=== PATIENT | male | born 1960 | race Caucasian/White ===

== ENCOUNTER 2022-04-19 10:09 | Inpatient (IN) | payer OTHER ==
[2022-04-19 11:24] VITALS: BMI 18.4
[2022-04-19] MEDS ORDERED: NICOTINE 10 MG CARTRIDGE (INHALER) IH PRN (14:12)
[2022-04-19] MEDS ORDERED: LOPERAMIDE HCL 2 MG CAPSULE PO PRN (14:12)
[2022-04-19] MEDS ORDERED: MAGNESIUM HYDROX 2400MG/30ML ORAL SUSPENSION 30 ML CUP PO PRN (14:12)
[2022-04-19] MEDS ORDERED: IBUPROFEN 400 MG TABLET (FP) PO PRN (14:12)
[2022-04-19] MEDS ORDERED: POLYETHYLENE GLYCOL (HEALTHYLAX) 3350 17 GM PACKET PO PRN (14:12)
[2022-04-19] MEDS ORDERED: BISMUTH SUBSALICYLATE 524 MG/30 ML PO PRN (14:12)
[2022-04-19] MEDS ORDERED: IBUPROFEN 600 MG TABLET (FP) PO PRN (14:12)
[2022-04-19] MEDS ORDERED: MAG HYDROX/AL HYDROX/SIMETH 30 ML UNIT-DOSE CUP PO PRN (14:12)
[2022-04-19] MEDS ORDERED: DICYCLOMINE HCL 10 MG CAPSULE PO PRN (14:12)
[2022-04-19] MEDS ORDERED: ACETAMINOPHEN 325 MG TABLET (FP) PO PRN ×2 (14:12)
[2022-04-19] MEDS ORDERED: chlordiazePOXIDE HCL 25 MG CAPSULE PO PRN (14:12)
[2022-04-19] MEDS ORDERED: ONDANSETRON *ODT* 4 MG TABLET SL PRN (14:12)
[2022-04-19] MEDS ORDERED: BENZOCAINE/MENTHOL (CHLORASEPTIC ) LOZENGE MM PRN (14:12)
[2022-04-19] MEDS ORDERED: NALOXONE HCL (KLOXXADO) 8 MG SPRAY NS PRN (14:12)
[2022-04-19] MEDS ORDERED: hydrOXYzine PAMOATE 25 MG CAPSULE (FP) PO PRN (14:12)
[2022-04-19] MEDS ORDERED: methaDONE HCL 10 MG TABLET (FOR DETOX USE ONLY) PO ONE (14:45)
[2022-04-19] MEDS: NICOTINE 7 MG/24 HOURS TOPICAL PATCH TD SCH (15:02)
[2022-04-19] MEDS: chlordiazePOXIDE HCL 25 MG CAPSULE PO SCH ×2 (17:53→22:09)
[2022-04-19] MEDS: MELATONIN 5 MG TABLETS PO SCH (22:09)
[2022-04-19] MEDS: THIAMINE HCL 100 MG TABLET (FP) PO SCH (22:09)
[2022-04-20] MEDS: chlordiazePOXIDE HCL 25 MG CAPSULE PO SCH ×4 (05:25→22:29)
[2022-04-20] MEDS: PRENATAL VITAMINS W/ FOLIC ACID TABLET (FP) PO SCH (10:21)
[2022-04-20] MEDS: METHOCARBAMOL 500 MG TABLET PO PRN ×2 (10:25→18:45)
[2022-04-20] MEDS: NICOTINE 7 MG/24 HOURS TOPICAL PATCH TD SCH (10:43)
[2022-04-20 11:35] LABS: HEMATOCRIT 39.4 % (35.4-49); MCH 30.8 pg (25.7-33.7); MEAN CELL VOLUME 93.4 fl (80-96); MEAN PLT VOLUME 9.8 fl (7.5-11.1); PLATELET COUNT 212 10^3/uL (134-434); RBC 4.22 M/mm3 (4.00-5.60); RDW 13.3 % (11.9-15.9); WHITE BLOOD COUNT 4.9 K/mm3 (4.0-10.0)
[2022-04-20 12:17] LABS: BLOOD UREA NITROGEN 23.4 mg/dL (7-18); CALCIUM 8.5 mg/dL (8.5-10.1)
[2022-04-20 12:18] LABS: ALBUMIN 3.3 g/dl (3.4-5.0)
[2022-04-20 12:21] LABS: CREATININE 1.1 mg/dL (0.55-1.3)
[2022-04-20 12:22] LABS: BILIRUBIN,TOTAL 0.5 mg/dL (0.2-1); TOT PROT 6.5 g/dl (6.4-8.2)
[2022-04-20 21:20] VITALS: RESP 16
[2022-04-20] MEDS: MELATONIN 5 MG TABLETS PO SCH (22:29)
[2022-04-20] MEDS: THIAMINE HCL 100 MG TABLET (FP) PO SCH (22:29)
[2022-04-21] MEDS: chlordiazePOXIDE HCL 25 MG CAPSULE PO SCH ×3 (06:05→17:49)
[2022-04-21] MEDS ORDERED: methaDONE HCL 10 MG TABLET (FOR DETOX USE ONLY) PO ONE (10:00)
[2022-04-21] MEDS: NICOTINE 7 MG/24 HOURS TOPICAL PATCH TD SCH (10:14)
[2022-04-21] MEDS: PRENATAL VITAMINS W/ FOLIC ACID TABLET (FP) PO SCH (10:16)
[2022-04-21] MEDS: METHOCARBAMOL 500 MG TABLET PO PRN (10:16)
[2022-04-21 17:01] VITALS: BP 137/75; PULSE 70; TEMP 97.6
[2022-04-22] MEDS ORDERED: chlordiazePOXIDE HCL 10 MG CAPSULE PO PRN
[2022-04-22] MEDS ORDERED: chlordiazePOXIDE HCL 10 MG CAPSULE PO SCH (05:00)
[2022-04-23] MEDS ORDERED: chlordiazePOXIDE HCL 10 MG CAPSULE PO SCH (05:00)
[2022-04-23] MEDS ORDERED: methaDONE HCL 10 MG TABLET (FOR DETOX USE ONLY) PO ONE (10:00)
[2022-04-24] MEDS ORDERED: chlordiazePOXIDE HCL 10 MG CAPSULE PO ONE (05:00)
== END 2022-04-21 20:06 | disposition left against medical advice (07) | DRG 770 ==
LOC: YASAS 10:09 → Y3N 13:59
PROVIDERS: ADMIT Allergy & Immunology; ATTEND Surgery
PROC: HZ2ZZZZ Detoxification Services for Substance Abuse Treatment (ICD-10-PCS; principal; 2022-04-19)
DX: F10.230 Alcohol dependence with withdrawal, uncomplicated (principal); F11.23 Opioid dependence with withdrawal; F14.10 Cocaine abuse, uncomplicated; F12.20 Cannabis dependence, uncomplicated; F17.210 Nicotine dependence, cigarettes, uncomplicated
CPT/HCPCS: 36415; 80053; 84520; 85027; 86780; 87811; C9803-CS; U0003; U0005

== ENCOUNTER 2022-05-18 11:57 | Inpatient (IN) | payer OTHER ==
[2022-05-18 12:18] VITALS: BMI 17.7
[2022-05-18] MEDS ORDERED: NALOXONE HCL (KLOXXADO) 8 MG SPRAY NS PRN (13:17)
[2022-05-18] MEDS ORDERED: BISMUTH SUBSALICYLATE 262 MG/15 ML BTL PO PRN (13:17)
[2022-05-18] MEDS ORDERED: MAGNESIUM HYDROX 2400MG/30ML ORAL SUSPENSION 30 ML CUP PO PRN (13:17)
[2022-05-18] MEDS ORDERED: IBUPROFEN 400 MG TABLET (FP) PO PRN (13:17)
[2022-05-18] MEDS ORDERED: LOPERAMIDE HCL 2 MG CAPSULE PO PRN (13:17)
[2022-05-18] MEDS ORDERED: IBUPROFEN 600 MG TABLET (FP) PO PRN (13:17)
[2022-05-18] MEDS ORDERED: BENZONATATE 200 MG CAPSULE PO PRN (13:17)
[2022-05-18] MEDS ORDERED: BENZOCAINE/MENTHOL (CHLORASEPTIC ) LOZENGE MM PRN (13:17)
[2022-05-18] MEDS ORDERED: NALOXONE HCL 0.4 MG/ML VIAL IM PRN (13:17)
[2022-05-18] MEDS ORDERED: POLYETHYLENE GLYCOL (HEALTHYLAX) 3350 17 GM PACKET PO PRN (13:17)
[2022-05-18] MEDS ORDERED: hydrOXYzine PAMOATE 25 MG CAPSULE (FP) PO PRN (13:17)
[2022-05-18] MEDS ORDERED: ACETAMINOPHEN 325 MG TABLET (FP) PO PRN (13:17)
[2022-05-18] MEDS ORDERED: NICOTINE 10 MG CARTRIDGE (INHALER) IH PRN (13:17)
[2022-05-18] MEDS ORDERED: guaiFENesin 600 MG TABLET.ER (FP) PO PRN (13:17)
[2022-05-18] MEDS ORDERED: diazePAM 5 MG TABLET PO ONE (13:17)
[2022-05-18] MEDS ORDERED: METHOCARBAMOL 500 MG TABLET PO PRN (13:17)
[2022-05-18] MEDS ORDERED: MAG HYDROX/AL HYDROX/SIMETH 30 ML UNIT-DOSE CUP PO PRN (13:17)
[2022-05-18] MEDS ORDERED: PRENATAL VITAMINS W/ FOLIC ACID TABLET (FP) PO ONE (14:12)
[2022-05-18] MEDS ORDERED: diazePAM 5 MG TABLET ONE (14:12)
[2022-05-18] MEDS ORDERED: NICOTINE 14 MG/24 HOURS TOPICAL PATCH TD ONE (14:12)
[2022-05-18] MEDS: PRENATAL VITAMINS W/ FOLIC ACID TABLET (FP) PO SCH (14:22)
[2022-05-18] MEDS: NICOTINE 14 MG/24 HOURS TOPICAL PATCH TD SCH (14:22)
[2022-05-18] MEDS: diazePAM 5 MG TABLET PO SCH (18:07)
[2022-05-18] MEDS: ONDANSETRON *ODT* 4 MG TABLET SL PRN (18:51)
[2022-05-18 18:57] LABS: HEMATOCRIT 34.4 % (35.4-49); HEMOGLOBIN 11.3 GM/dL (11.7-16.9); MCH 29.9 pg (25.7-33.7); MCHC 32.7 g/dl (32.0-35.9); MEAN CELL VOLUME 91.4 fl (80-96); MEAN PLT VOLUME 8.6 fl (7.5-11.1); PLATELET COUNT 292 10^3/uL (134-434); RBC 3.77 M/mm3 (4.00-5.60); RDW 13.9 % (11.9-15.9); WHITE BLOOD COUNT 4.3 K/mm3 (4.0-10.0)
[2022-05-18 19:04] LABS: BLOOD UREA NITROGEN 20.6 mg/dL (7-18)
[2022-05-18 19:09] LABS: BILIRUBIN,TOTAL 0.1 mg/dL (0.2-1)
[2022-05-18 19:10] LABS: TOT PROT 6.3 g/dl (6.4-8.2)
[2022-05-18] MEDS: DICYCLOMINE HCL 10 MG CAPSULE PO PRN (20:54)
[2022-05-18] MEDS ORDERED: TRIMETHOBENZAMIDE HCL 200MG/2ML INJ IM ONE (23:06)
[2022-05-19] MEDS: THIAMINE HCL 100 MG TABLET (FP) PO SCH ×2 (00:09→22:23)
[2022-05-19] MEDS: MELATONIN 5 MG TABLETS PO SCH ×2 (00:09→22:24)
[2022-05-19] MEDS: diazePAM 5 MG TABLET PO SCH ×5 (00:09→22:23)
[2022-05-19] MEDS: diazePAM 5 MG TABLET PO PRN ×2 (00:11→18:53)
[2022-05-19] MEDS: PRENATAL VITAMINS W/ FOLIC ACID TABLET (FP) PO SCH (10:22)
[2022-05-19] MEDS: NICOTINE 14 MG/24 HOURS TOPICAL PATCH TD SCH (10:22)
[2022-05-20] MEDS: diazePAM 5 MG TABLET PO SCH ×3 (05:07→21:45)
[2022-05-20] MEDS: NICOTINE 14 MG/24 HOURS TOPICAL PATCH TD SCH (10:13)
[2022-05-20] MEDS: PRENATAL VITAMINS W/ FOLIC ACID TABLET (FP) PO SCH (10:14)
[2022-05-20] MEDS: diazePAM 5 MG TABLET PO PRN (10:15)
[2022-05-20] MEDS: ONDANSETRON *ODT* 4 MG TABLET SL PRN (11:03)
[2022-05-20] MEDS ORDERED: amLODIPine BESYLATE 5 MG TABLET (FP) PO SCH (11:45)
[2022-05-20] MEDS ORDERED: TRIMETHOBENZAMIDE HCL 200MG/2ML INJ IM PRN (11:54)
[2022-05-20] MEDS ORDERED: MAG HYDROX/AL HYDROX/SIMETH -MYLANTA- ORAL SUSPENSION PO ONE (11:57)
[2022-05-20] MEDS: DICYCLOMINE HCL 10 MG CAPSULE PO PRN (14:49)
[2022-05-20 17:48] VITALS: TEMP 97.3
[2022-05-20 21:22] VITALS: BP 158/88; PULSE 87; RESP 18
[2022-05-20] MEDS: THIAMINE HCL 100 MG TABLET (FP) PO SCH (21:45)
[2022-05-20] MEDS: MELATONIN 5 MG TABLETS PO SCH (21:45)
[2022-05-21] MEDS ORDERED: diazePAM 5 MG TABLET PO SCH (06:00)
[2022-05-22] MEDS ORDERED: diazePAM 5 MG TABLET PO ONE (06:00)
== END 2022-05-20 21:45 | disposition left against medical advice (07) | DRG 770 ==
LOC: YASAS 11:57 → Y6N 13:42
PROVIDERS: ADMIT Allergy & Immunology; ATTEND Surgery
PROC: HZ2ZZZZ Detoxification Services for Substance Abuse Treatment (ICD-10-PCS; principal; 2022-05-18)
DX: F10.230 Alcohol dependence with withdrawal, uncomplicated (principal); F11.20 Opioid dependence, uncomplicated; F14.10 Cocaine abuse, uncomplicated; F12.10 Cannabis abuse, uncomplicated; F17.210 Nicotine dependence, cigarettes, uncomplicated; I10 Essential (primary) hypertension; R11.2 Nausea with vomiting, unspecified; R19.7 Diarrhea, unspecified; R10.9 Unspecified abdominal pain
CPT/HCPCS: 36415; 80053; 85027; 86780; C9803-CS; Q0162; U0003; U0005

== ENCOUNTER 2022-05-20 18:09 | Emergency (ER) | payer OTHER ==
[2022-05-20 18:19] VITALS: BP 155/88; PULSE 81; RESP 20; TEMP 98; BMI 17.7
[2022-05-20] MEDS ORDERED: ONDANSETRON 4 MG/2 ML VIAL IVPUSH ONE (19:56)
[2022-05-20] MEDS ORDERED: SODIUM CHLORIDE 0.9% 500 ML INFUS.BAG IV ONE (19:56)
[2022-05-20] MEDS ORDERED: ACETAMINOPHEN 1000 MG/100 ML BAG IVPB ONE (19:56)
[2022-05-20] MEDS ORDERED: FAMOTIDINE 20 MG/50 ML IVPB 20 MG/50 ML MG IVPB ONE (19:56)
[2022-05-20 20:11] LABS: BASO % 0.5 % (0-2.0); HEMATOCRIT 41.2 % (35.4-49); HEMOGLOBIN 13.7 GM/dL (11.7-16.9); LYMPH % 21.3 % (8-40); MCH 30.3 pg (25.7-33.7); MCHC 33.4 g/dl (32.0-35.9); MEAN CELL VOLUME 90.6 fl (80-96); MEAN PLT VOLUME 8.5 fl (7.5-11.1); MONO % 8.2 % (3.8-10.2); PLATELET COUNT 321 10^3/uL (134-434); RBC 4.54 M/mm3 (4.00-5.60); WHITE BLOOD COUNT 5.3 K/mm3 (4.0-10.0)
[2022-05-20 20:12] LABS: PH,URINE 8.5 (5.0-8.0); URINE APPEARANCE CLEAR; URINE BILIRUBIN NEGATIVE (NEGATIVE); URINE COLOR YELLOW; URINE GLUCOSE (UA) NEGATIVE (NEGATIVE); URINE KETONE NEGATIVE (NEGATIVE); URINE LEUK ESTERASE NEGATIVE (NEGATIVE); URINE NITRITE NEGATIVE (NEGATIVE); URINE PROTEIN NEGATIVE (NEGATIVE); URINE UROBILINOGEN 0.2 mg/dL (0.2-1.0)
[2022-05-20 20:32] LABS: CALCIUM 8.6 mg/dL (8.5-10.1)
[2022-05-20 20:33] LABS: ALBUMIN 3.3 g/dl (3.4-5.0); BLOOD UREA NITROGEN 17.8 mg/dL (7-18)
[2022-05-20 20:36] LABS: CREATININE 0.8 mg/dL (0.55-1.3)
[2022-05-20 20:37] LABS: TOT PROT 7.2 g/dl (6.4-8.2)
[2022-05-20 20:38] LABS: BILIRUBIN,TOTAL 0.3 mg/dL (0.2-1)
== END 2022-05-20 23:09 | disposition left against medical advice (07) ==
LOC: JER 18:09
DX: R10.84 Generalized abdominal pain (principal); R11.2 Nausea with vomiting, unspecified; Z20.822 Contact with and (suspected) exposure to COVID-19
CPT/HCPCS: 0241U-QW; 36415; 71045-TC-FY; 80053; 81003; 83605; 83690; 84484; 85025; 87086; 87186; 93005; 93010; 99285-25

== ENCOUNTER 2023-07-01 13:46 | Inpatient (IN) | payer OTHER ==
[2023-07-01 14:20] VITALS: BMI 19.2
[2023-07-01] MEDS ORDERED: MAG HYDROX/AL HYDROX/SIMETH 30 ML UNIT-DOSE CUP PO PRN (16:07)
[2023-07-01] MEDS ORDERED: POLYETHYLENE GLYCOL (HEALTHYLAX) 3350 17 GM PACKET PO PRN (16:07)
[2023-07-01] MEDS ORDERED: NALOXONE HCL 0.4 MG/ML VIAL IM PRN (16:07)
[2023-07-01] MEDS ORDERED: MAGNESIUM HYDROX 2400MG/30ML ORAL SUSPENSION 30 ML CUP PO PRN (16:07)
[2023-07-01] MEDS ORDERED: IBUPROFEN 600 MG TABLET (FP) PO PRN (16:07)
[2023-07-01] MEDS ORDERED: ACETAMINOPHEN 325 MG TABLET (FP) PO PRN (16:07)
[2023-07-01] MEDS ORDERED: NALOXONE HCL (KLOXXADO) 8 MG SPRAY NS PRN (16:07)
[2023-07-01] MEDS ORDERED: BENZONATATE 200 MG CAPSULE PO PRN (16:07)
[2023-07-01] MEDS ORDERED: BENZOCAINE/MENTHOL (CHLORASEPTIC ) LOZENGE MM PRN (16:07)
[2023-07-01] MEDS ORDERED: guaiFENesin 600 MG TABLET.ER (FP) PO PRN (16:07)
[2023-07-01] MEDS ORDERED: IBUPROFEN 400 MG TABLET (FP) PO PRN (16:07)
[2023-07-01] MEDS ORDERED: BISMUTH SUBSALICYLATE 524 MG/30 ML PO PRN (16:07)
[2023-07-01] MEDS ORDERED: LORazepam 1 MG TABLET PO PRN (16:07)
[2023-07-01] MEDS ORDERED: LORazepam 2 MG TABLET ONE (17:17)
[2023-07-01] MEDS: LORazepam 2 MG TABLET PO SCH (17:20)
[2023-07-01] MEDS: PRENATAL VITAMINS W/ FOLIC ACID TABLET (FP) PO SCH (17:51)
[2023-07-01] MEDS: NICOTINE 7 MG/24 HOURS TOPICAL PATCH TD SCH (17:52)
[2023-07-01] MEDS: ONDANSETRON *ODT* 4 MG TABLET SL PRN (20:14)
[2023-07-01] MEDS: TRIMETHOBENZAMIDE HCL 200MG/2ML INJ IM ONE (21:27)
[2023-07-01] MEDS: THIAMINE 100 MG TABLET PO SCH (23:01)
[2023-07-01] MEDS: MELATONIN 5 MG TABLETS PO SCH (23:01)
[2023-07-02] MEDS: DICYCLOMINE HCL 10 MG CAPSULE PO PRN (09:52)
[2023-07-02] MEDS: hydrOXYzine PAMOATE 25 MG CAPSULE (FP) PO PRN (09:52)
[2023-07-02] MEDS: METHOCARBAMOL 500 MG TABLET PO PRN (09:52)
[2023-07-02] MEDS ORDERED: TRIMETHOBENZAMIDE HCL 200MG/2ML INJ IM PRN (10:49)
[2023-07-02 11:42] LABS: CHLORIDE 104 mmol/L (98-107); POTASSIUM 4.2 mmol/L (3.5-5.1); SODIUM 134 mmol/L (136-145)
[2023-07-02 11:47] LABS: CALCIUM 8.7 mg/dL (8.5-10.1)
[2023-07-02 11:48] LABS: ALBUMIN 3.6 g/dl (3.4-5.0); ANION GAP 3 mmol/L (4-13); BLOOD UREA NITROGEN 17.5 mg/dL (7-18); CO2 27 mmol/L (21-32)
[2023-07-02 11:49] LABS: GLUCOSE,RANDOM 113 mg/dL (74-106)
[2023-07-02 11:51] LABS: SGOT/AST 36 U/L (15-37); SGPT/ALT 26 U/L (13-61)
[2023-07-02 11:52] LABS: CREATININE 0.9 mg/dL (0.55-1.3)
[2023-07-02 11:54] LABS: BILIRUBIN,TOTAL 0.5 mg/dL (0.2-1); TOT PROT 6.9 g/dl (6.4-8.2)
[2023-07-02 11:55] LABS: ALK PHOS 87 U/L (45-117)
[2023-07-02 12:02] LABS: HEMATOCRIT 42.4 % (35.4-49); HEMOGLOBIN 14.3 GM/dL (11.7-16.9); MCH 31.4 pg (25.7-33.7); MCHC 33.7 g/dl (32.0-35.9); MEAN CELL VOLUME 93.2 fl (80-96); MEAN PLT VOLUME 10.4 fl (7.5-11.1); PLATELET COUNT 188 10^3/uL (134-434); RBC 4.55 M/mm3 (4.00-5.60); RDW 14.3 % (11.9-15.9); WHITE BLOOD COUNT 5.6 K/mm3 (4.0-10.0)
[2023-07-02] MEDS: FAMOTIDINE 20 MG TABLET PO SCH (14:41)
[2023-07-02] MEDS: LACTULOSE 20 GM/30 ML UDC (FOR ORAL USE ONLY) PO SCH (22:39)
[2023-07-03] MEDS: LORazepam 1 MG TABLET PO SCH (05:13)
[2023-07-04] MEDS ORDERED: LORazepam 0.5 MG TABLET PO PRN
[2023-07-04] MEDS: LORazepam 0.5 MG TABLET PO SCH (05:42)
[2023-07-05] MEDS: LORazepam 0.5 MG TABLET PO ONE (05:39)
[2023-07-05 06:26] VITALS: RESP 17
[2023-07-05] MEDS: LOPERAMIDE HCL 2 MG CAPSULE PO PRN (08:49)
[2023-07-05 08:50] VITALS: BP 128/78; PULSE 72; TEMP 97.7
== END 2023-07-05 11:35 | disposition home or self-care (01) | DRG 775 ==
LOC: YASAS 13:46 → Y6N 16:57
PROVIDERS: ADMIT Allergy & Immunology; ATTEND Surgery
PROC: HZ2ZZZZ Detoxification Services for Substance Abuse Treatment (ICD-10-PCS; principal; 2023-07-01)
DX: F10.230 Alcohol dependence with withdrawal, uncomplicated (principal); F10.24 Alcohol dependence with alcohol-induced mood disorder; F10.282 Alcohol dependence with alcohol-induced sleep disorder; F12.20 Cannabis dependence, uncomplicated; F17.210 Nicotine dependence, cigarettes, uncomplicated; I10 Essential (primary) hypertension; E72.20 Disorder of urea cycle metabolism, unspecified; K21.9 Gastro-esophageal reflux disease without esophagitis; R26.81 Unsteadiness on feet; M19.90 Unspecified osteoarthritis, unspecified site; Z86.11 Personal history of tuberculosis; Z91.013 Allergy to seafood; Z56.0 Unemployment, unspecified; Z59.00 Homelessness unspecified
CPT/HCPCS: 36415; 71046-TC-FY; 80053; 80305; 80307; 82140; 82962; 85027; 86780; 87811; 93005; 93010; Q0162

== ENCOUNTER 2024-02-04 17:08 | Inpatient (IN) | payer OTHER ==
[2024-02-04 18:01] VITALS: BMI 18.0
[2024-02-04] MEDS ORDERED: chlordiazePOXIDE HCL 25 MG CAPSULE PO PRN (18:30)
[2024-02-04] MEDS ORDERED: IBUPROFEN 600 MG TABLET (FP) PO PRN (18:34)
[2024-02-04] MEDS ORDERED: BENZONATATE 200 MG CAPSULE PO PRN (18:34)
[2024-02-04] MEDS ORDERED: LOPERAMIDE HCL 2 MG CAPSULE PO PRN (18:34)
[2024-02-04] MEDS ORDERED: ACETAMINOPHEN 325 MG TABLET (FP) PO PRN (18:34)
[2024-02-04] MEDS ORDERED: BISMUTH SUBSALICYLATE 524 MG/30 ML PO PRN (18:34)
[2024-02-04] MEDS ORDERED: NICOTINE POLACRILEX 2 MG LOZENGE BC PRN (18:34)
[2024-02-04] MEDS ORDERED: ONDANSETRON *ODT* 4 MG TABLET SL PRN (18:34)
[2024-02-04] MEDS ORDERED: MAGNESIUM HYDROX 2400MG/30ML ORAL SUSPENSION 30 ML CUP PO PRN (18:34)
[2024-02-04] MEDS ORDERED: NICOTINE POLACRILEX 2 MG GUM BUC PRN (18:34)
[2024-02-04] MEDS ORDERED: guaiFENesin 600 MG TABLET.ER (FP) PO PRN (18:34)
[2024-02-04] MEDS ORDERED: POLYETHYLENE GLYCOL (HEALTHYLAX) 3350 17 GM PACKET PO PRN (18:34)
[2024-02-04] MEDS ORDERED: IBUPROFEN 400 MG TABLET (FP) PO PRN (18:34)
[2024-02-04] MEDS: chlordiazePOXIDE HCL 25 MG CAPSULE PO ONE (19:35)
[2024-02-04] MEDS: chlordiazePOXIDE HCL 25 MG CAPSULE PO SCH (23:14)
[2024-02-04] MEDS: THIAMINE 100 MG TABLET PO SCH (23:14)
[2024-02-04] MEDS: MELATONIN 5 MG TABLETS PO SCH (23:14)
[2024-02-04] MEDS ORDERED: LORazepam 2 MG/ML SDV VIAL ONE (23:30)
[2024-02-04] MEDS: levETIRAcetam 500 MG TABLET (FP) PO SCH (23:42)
[2024-02-04] MEDS: LORazepam 2 MG/ML SDV VIAL IM ONE (23:42)
[2024-02-05] MEDS: FAMOTIDINE 20 MG TABLET PO SCH (10:05)
[2024-02-05] MEDS: PRENATAL VITAMINS W/ FOLIC ACID TABLET (FP) PO SCH (10:06)
[2024-02-05] MEDS: DICYCLOMINE HCL 10 MG CAPSULE PO PRN (10:06)
[2024-02-05 11:26] LABS: POTASSIUM 3.9 mmol/L (3.5-5.1)
[2024-02-05 11:28] LABS: CALCIUM 9.1 mg/dL (8.5-10.1)
[2024-02-05 11:30] LABS: ALBUMIN 3.2 g/dl (3.4-5.0); BLOOD UREA NITROGEN 33.2 mg/dL (7-18)
[2024-02-05 11:31] LABS: HEMATOCRIT 41.2 % (35.4-49); HEMOGLOBIN 13.2 GM/dL (11.7-16.9); MCH 30.6 pg (25.7-33.7); MEAN CELL VOLUME 95.5 fl (80-96); MEAN PLT VOLUME 9.5 fl (7.5-11.1); PLATELET COUNT 221 10^3/uL (134-434); RBC 4.31 M/mm3 (4.00-5.60); WHITE BLOOD COUNT 4.5 K/mm3 (4.0-10.0)
[2024-02-05 11:32] LABS: CREATININE 1.1 mg/dL (0.55-1.3)
[2024-02-05 11:33] LABS: BILIRUBIN,TOTAL 0.2 mg/dL (0.2-1); TOT PROT 6.3 g/dl (6.4-8.2)
[2024-02-05] MEDS: diazePAM 5 MG TABLET PO SCH (11:59)
[2024-02-05 17:59] LABS: INR 0.84 (0.83-1.09); PROTHROMBIN TIME (PATIENT) 9.5 SEC (9.7-13.0)
[2024-02-06] MEDS ORDERED: chlordiazePOXIDE HCL 25 MG CAPSULE PO SCH (05:00)
[2024-02-06] MEDS: hydrOXYzine PAMOATE 25 MG CAPSULE (FP) PO PRN (18:20)
[2024-02-06] MEDS: BENZOCAINE/MENTHOL (CHLORASEPTIC ) LOZENGE MM PRN (21:28)
[2024-02-06] MEDS: P-EPHED 60MG/TRIPROLIDI 2.5MG TABLET PO PRN (22:21)
[2024-02-07] MEDS ORDERED: chlordiazePOXIDE HCL 10 MG CAPSULE PO PRN
[2024-02-07] MEDS: MAG HYDROX/AL HYDROX/SIMETH 30 ML UNIT-DOSE CUP PO PRN (01:31)
[2024-02-07] MEDS ORDERED: chlordiazePOXIDE HCL 10 MG CAPSULE PO SCH (05:00)
[2024-02-07] MEDS: diazePAM 5 MG TABLET PO SCH (05:37)
[2024-02-07] MEDS: METHOCARBAMOL 500 MG TABLET PO PRN (21:17)
[2024-02-08] MEDS ORDERED: chlordiazePOXIDE HCL 10 MG CAPSULE PO SCH (05:00)
[2024-02-08] MEDS: diazePAM 5 MG TABLET PO SCH (05:47)
[2024-02-08] MEDS: diazePAM 5 MG TABLET PO PRN (09:15)
[2024-02-08] MEDS: NALOXONE (NYS OPIOID OVERDOSE PROGRAM) 4 MG/0.1 ML SPRAY NS SCH (11:20)
[2024-02-08] MEDS: diazePAM 5 MG TABLET PO ONE (16:39)
[2024-02-09] MEDS ORDERED: chlordiazePOXIDE HCL 10 MG CAPSULE PO ONE (05:00)
[2024-02-09] MEDS: diazePAM 5 MG TABLET PO ONE (05:18)
[2024-02-09 09:08] VITALS: BP 159/87; PULSE 78; RESP 18; TEMP 98.4
== END 2024-02-09 10:38 | disposition home or self-care (01) | DRG 774 ==
LOC: YASAS 17:08 → Y6N 19:21 → Y3N 02-05 00:12
PROVIDERS: ADMIT Allergy & Immunology; ATTEND Surgery
PROC: HZ2ZZZZ Detoxification Services for Substance Abuse Treatment (ICD-10-PCS; principal; 2024-02-04)
DX: F10.230 Alcohol dependence with withdrawal, uncomplicated (principal); F14.20 Cocaine dependence, uncomplicated; F12.20 Cannabis dependence, uncomplicated; F17.210 Nicotine dependence, cigarettes, uncomplicated; F32.A Depression, unspecified; F41.9 Anxiety disorder, unspecified; I10 Essential (primary) hypertension; R79.89 Other specified abnormal findings of blood chemistry; R73.9 Hyperglycemia, unspecified; M19.90 Unspecified osteoarthritis, unspecified site; R26.81 Unsteadiness on feet; K21.9 Gastro-esophageal reflux disease without esophagitis; Z86.11 Personal history of tuberculosis; Z86.69 Personal history of other diseases of the nervous system and sense organs; Z91.013 Allergy to seafood
CPT/HCPCS: 36415; 80053; 82140; 83036; 85027; 85610; 86780

== ENCOUNTER 2024-02-24 14:04 | Inpatient (IN) | payer OTHER ==
[2024-02-24 14:30] VITALS: BMI 18.0
[2024-02-24] MEDS ORDERED: MAGNESIUM HYDROX 2400MG/30ML ORAL SUSPENSION 30 ML CUP PO PRN (15:59)
[2024-02-24] MEDS ORDERED: BENZONATATE 200 MG CAPSULE PO PRN (15:59)
[2024-02-24] MEDS ORDERED: NALOXONE (NARCAN) HCL 4 MG/0.1 ML SPRAY NS PRN (15:59)
[2024-02-24] MEDS ORDERED: guaiFENesin 600 MG TABLET.ER (FP) PO PRN (15:59)
[2024-02-24] MEDS ORDERED: MAG HYDROX/AL HYDROX/SIMETH 30 ML UNIT-DOSE CUP PO PRN (15:59)
[2024-02-24] MEDS ORDERED: ACETAMINOPHEN 325 MG TABLET (FP) PO PRN (15:59)
[2024-02-24] MEDS ORDERED: IBUPROFEN 600 MG TABLET (FP) PO PRN (15:59)
[2024-02-24] MEDS ORDERED: POLYETHYLENE GLYCOL (HEALTHYLAX) 3350 17 GM PACKET PO PRN (15:59)
[2024-02-24] MEDS ORDERED: IBUPROFEN 400 MG TABLET (FP) PO PRN (15:59)
[2024-02-24] MEDS ORDERED: BENZOCAINE/MENTHOL (CHLORASEPTIC ) LOZENGE MM PRN (15:59)
[2024-02-24] MEDS ORDERED: BISMUTH SUBSALICYLATE 524 MG/30 ML PO PRN (15:59)
[2024-02-24] MEDS ORDERED: NICOTINE POLACRILEX 2 MG GUM BUC PRN (15:59)
[2024-02-24] MEDS ORDERED: LORazepam 1 MG TABLET PO PRN (16:05)
[2024-02-24] MEDS: MELATONIN 5 MG TABLETS PO SCH (22:34)
[2024-02-24] MEDS: THIAMINE 100 MG TABLET PO SCH (22:34)
[2024-02-24] MEDS: LORazepam 1 MG TABLET PO SCH (22:41)
[2024-02-24] MEDS ORDERED: LORazepam 2 MG TABLET PO SCH (23:00)
[2024-02-25] MEDS: PRENATAL VITAMINS W/ FOLIC ACID TABLET (FP) PO SCH (10:07)
[2024-02-25] MEDS: LOPERAMIDE HCL 2 MG CAPSULE PO PRN (13:36)
[2024-02-25 13:57] LABS: HEMATOCRIT 39.1 % (35.4-49); HEMOGLOBIN 12.6 GM/dL (11.7-16.9); MCH 30.8 pg (25.7-33.7); MCHC 32.3 g/dl (32.0-35.9); MEAN CELL VOLUME 95.4 fl (80-96); MEAN PLT VOLUME 9.4 fl (7.5-11.1); PLATELET COUNT 217 10^3/uL (134-434); RDW 14.3 % (11.9-15.9); WHITE BLOOD COUNT 4.6 K/mm3 (4.0-10.0)
[2024-02-25 13:59] LABS: CHLORIDE 107 mmol/L (98-107); POTASSIUM 4.2 mmol/L (3.5-5.1); SODIUM 137 mmol/L (136-145)
[2024-02-25 14:08] LABS: CALCIUM 8.7 mg/dL (8.5-10.1); GLUCOSE,RANDOM 120 mg/dL (74-106)
[2024-02-25 14:09] LABS: ALBUMIN 3.2 g/dl (3.4-5.0); ANION GAP 5 mmol/L (4-13); CO2 25 mmol/L (21-32)
[2024-02-25 14:11] LABS: SGOT/AST 30 U/L (15-37); SGPT/ALT 25 U/L (13-61)
[2024-02-25 14:12] LABS: CREATININE 0.9 mg/dL (0.55-1.3)
[2024-02-25 14:13] LABS: BILIRUBIN,TOTAL 0.4 mg/dL (0.2-1); TOT PROT 6.2 g/dl (6.4-8.2)
[2024-02-25 14:14] LABS: ALK PHOS 80 U/L (45-117)
[2024-02-25] MEDS: FAMOTIDINE 20 MG TABLET PO SCH (14:50)
[2024-02-26] MEDS: LORazepam 1 MG TABLET PO SCH (05:58)
[2024-02-26] MEDS: diazePAM 5 MG TABLET PO PRN (10:46)
[2024-02-26] MEDS: diazePAM 5 MG TABLET PO SCH (13:10)
[2024-02-26] MEDS: ONDANSETRON *ODT* 4 MG TABLET SL PRN (22:18)
[2024-02-27] MEDS ORDERED: LORazepam 0.5 MG TABLET PO PRN
[2024-02-27] MEDS ORDERED: LORazepam 0.5 MG TABLET PO SCH (05:00)
[2024-02-27] MEDS: diazePAM 5 MG TABLET PO SCH (05:31)
[2024-02-28] MEDS ORDERED: LORazepam 0.5 MG TABLET PO ONE (05:00)
[2024-02-28 05:55] VITALS: RESP 18
[2024-02-28] MEDS: diazePAM 5 MG TABLET PO ONE (06:00)
[2024-02-28] MEDS ORDERED: diazePAM 5 MG TABLET PO SCH (06:00)
[2024-02-28 09:13] VITALS: BP 156/89; PULSE 73; TEMP 97.6
[2024-02-28] MEDS ORDERED: NALOXONE (NYS OPIOID OVERDOSE PROGRAM) 4 MG/0.1 ML SPRAY NS SCH (10:15)
== END 2024-02-28 10:10 | disposition home or self-care (01) | DRG 774 ==
LOC: YASAS 14:04 → Y6N 16:47
PROVIDERS: ADMIT Allergy & Immunology; ATTEND Surgery
PROC: HZ2ZZZZ Detoxification Services for Substance Abuse Treatment (ICD-10-PCS; principal; 2024-02-24)
DX: F10.230 Alcohol dependence with withdrawal, uncomplicated (principal); F14.20 Cocaine dependence, uncomplicated; F15.20 Other stimulant dependence, uncomplicated; F12.20 Cannabis dependence, uncomplicated; F17.210 Nicotine dependence, cigarettes, uncomplicated; G47.00 Insomnia, unspecified; I10 Essential (primary) hypertension; K21.9 Gastro-esophageal reflux disease without esophagitis; Z86.11 Personal history of tuberculosis
CPT/HCPCS: 36415; 80053; 80305; 80307; 83036; 85027; 86780; 93005; 93010; Q0162

== ENCOUNTER 2024-04-22 13:01 | Inpatient (IN) | payer OTHER ==
[2024-04-22] MEDS ORDERED: IBUPROFEN 600 MG TABLET (FP) PO PRN (14:17)
[2024-04-22] MEDS ORDERED: ACETAMINOPHEN 325 MG TABLET (FP) PO PRN (14:17)
[2024-04-22] MEDS ORDERED: LOPERAMIDE HCL 2 MG CAPSULE PO PRN (14:17)
[2024-04-22] MEDS ORDERED: BENZONATATE 200 MG CAPSULE PO PRN (14:17)
[2024-04-22] MEDS ORDERED: MAGNESIUM HYDROX 2400MG/30ML ORAL SUSPENSION 30 ML CUP PO PRN (14:17)
[2024-04-22] MEDS ORDERED: IBUPROFEN 400 MG TABLET (FP) PO PRN (14:17)
[2024-04-22] MEDS ORDERED: chlordiazePOXIDE HCL 25 MG CAPSULE PO PRN (14:17)
[2024-04-22] MEDS ORDERED: BENZOCAINE/MENTHOL (CHLORASEPTIC ) LOZENGE MM PRN (14:17)
[2024-04-22] MEDS ORDERED: guaiFENesin 600 MG TABLET.ER (FP) PO PRN (14:17)
[2024-04-22] MEDS ORDERED: NALOXONE (NARCAN) HCL 4 MG/0.1 ML SPRAY NS PRN (14:17)
[2024-04-22] MEDS ORDERED: BISMUTH SUBSALICYLATE 262 MG/15 ML BTL PO PRN (14:17)
[2024-04-22] MEDS ORDERED: POLYETHYLENE GLYCOL (HEALTHYLAX) 3350 17 GM PACKET PO PRN (14:17)
[2024-04-22] MEDS ORDERED: ONDANSETRON *ODT* 4 MG TABLET SL PRN (14:17)
[2024-04-22] MEDS ORDERED: MAG HYDROX/AL HYDROX/SIMETH 30 ML UNIT-DOSE CUP PO PRN (14:17)
[2024-04-22] MEDS ORDERED: DICYCLOMINE HCL 10 MG CAPSULE PO PRN (14:17)
[2024-04-22 14:32] VITALS: BMI 19.8
[2024-04-22 16:55] VITALS: RESP 16
[2024-04-22] MEDS: chlordiazePOXIDE HCL 25 MG CAPSULE PO SCH (17:01)
[2024-04-22] MEDS ORDERED: chlordiazePOXIDE HCL 25 MG CAPSULE ONE (17:01)
[2024-04-22] MEDS: NICOTINE 14 MG/24 HOURS TOPICAL PATCH TD SCH (17:06)
[2024-04-22] MEDS: PRENATAL VITAMINS W/ FOLIC ACID TABLET (FP) PO SCH (17:07)
[2024-04-22] MEDS: THIAMINE 100 MG TABLET PO SCH (22:33)
[2024-04-22] MEDS: MELATONIN 5 MG TABLETS PO SCH (22:33)
[2024-04-23] MEDS: hydrOXYzine PAMOATE 25 MG CAPSULE (FP) PO PRN (05:50)
[2024-04-23] MEDS: METHOCARBAMOL 500 MG TABLET PO PRN (05:50)
[2024-04-23] MEDS: BUPRENORPHINE/NALOXONE 8 MG/2 MG FILM PACKET SL SCH (10:56)
[2024-04-23] MEDS: FAMOTIDINE 20 MG TABLET PO SCH (10:56)
[2024-04-23 11:49] LABS: HEMATOCRIT 29.8 % (35.4-49); HEMOGLOBIN 9.4 GM/dL (11.7-16.9); MCH 29.7 pg (25.7-33.7); MCHC 31.7 g/dl (32.0-35.9); MEAN CELL VOLUME 93.7 fl (80-96); MEAN PLT VOLUME 9.4 fl (7.5-11.1); PLATELET COUNT 312 10^3/uL (134-434); RBC 3.18 M/mm3 (4.00-5.60); RDW 14.7 % (11.9-15.9); WHITE BLOOD COUNT 4.8 K/mm3 (4.0-10.0)
[2024-04-23 12:00] LABS: CHLORIDE 103 mmol/L (98-107); POTASSIUM 4.7 mmol/L (3.5-5.1); SODIUM 138 mmol/L (136-145)
[2024-04-23 12:05] LABS: SGOT/AST 23 U/L (15-37)
[2024-04-23 12:06] LABS: ALBUMIN 2.5 g/dl (3.4-5.0)
[2024-04-23 12:08] LABS: CALCIUM 8.2 mg/dL (8.5-10.1)
[2024-04-23 12:09] LABS: ANION GAP 6 mmol/L (4-13); BLOOD UREA NITROGEN 23.2 mg/dL (7-18); CO2 29 mmol/L (21-32); CREATININE 0.9 mg/dL (0.55-1.3); GLUCOSE,RANDOM 124 mg/dL (74-106); SGPT/ALT 25 U/L (13-61)
[2024-04-23 12:11] LABS: TOT PROT 5.9 g/dl (6.4-8.2)
[2024-04-23 12:12] LABS: ALK PHOS 68 U/L (45-117)
[2024-04-23 12:15] LABS: BILIRUBIN,TOTAL 0.4 mg/dL (0.2-1)
[2024-04-23 12:37] VITALS: BP 109/60; PULSE 99; TEMP 98.9
[2024-04-23] MEDS ORDERED: LORazepam 0.5 MG TABLET PO PRN (20:00)
[2024-04-24] MEDS ORDERED: chlordiazePOXIDE HCL 25 MG CAPSULE PO SCH (05:00)
[2024-04-25] MEDS ORDERED: chlordiazePOXIDE HCL 10 MG CAPSULE PO PRN
[2024-04-25] MEDS ORDERED: chlordiazePOXIDE HCL 10 MG CAPSULE PO SCH (05:00)
[2024-04-26] MEDS ORDERED: chlordiazePOXIDE HCL 10 MG CAPSULE PO SCH (05:00)
[2024-04-27] MEDS ORDERED: chlordiazePOXIDE HCL 10 MG CAPSULE PO ONE (05:00)
== END 2024-04-24 | disposition short-term general hospital (02) | DRG 773 ==
LOC: YASAS 13:01 → Y3N 16:34
PROVIDERS: ADMIT Allergy & Immunology; ATTEND Allergy & Immunology
PROC: HZ2ZZZZ Detoxification Services for Substance Abuse Treatment (ICD-10-PCS; principal; 2024-04-22)
DX: F10.230 Alcohol dependence with withdrawal, uncomplicated (principal); F11.20 Opioid dependence, uncomplicated; F14.10 Cocaine abuse, uncomplicated; F12.10 Cannabis abuse, uncomplicated; F17.210 Nicotine dependence, cigarettes, uncomplicated; I10 Essential (primary) hypertension; K21.9 Gastro-esophageal reflux disease without esophagitis; Z86.11 Personal history of tuberculosis
CPT/HCPCS: 36415; 80053; 80305; 80307; 85027; 86780; 93005; 93010

== ENCOUNTER 2024-04-23 15:13 | Inpatient (IN) | payer OTHER ==
[2024-04-23] MEDS ORDERED: THIAMINE HCL 200 MG/2 ML VIAL ONE (16:32)
[2024-04-23] MEDS: THIAMINE HCL 200 MG/2 ML VIAL IVPB ONE (16:46)
[2024-04-23] MEDS ORDERED: ACETAMINOPHEN INJECTION 100 ML ONE ×2 (16:51→22:24)
[2024-04-23 17:27] LABS: VENOUS BASE EXCESS 3.4 mmol/L (-2-2); VENOUS O2 SATURATION 71.4 % (70-80); VENOUS PCO2 49.1 mmHg (38-52); VENOUS PH 7.39 (7.310-7.410)
[2024-04-23 17:30] LABS: BASO % 0.8 % (0-2.0); EOS % 3.6 % (0-4.5); HEMATOCRIT 29.1 % (35.4-49); HEMOGLOBIN 9.2 GM/dL (11.7-16.9); LYMPH % 26.9 % (8-40); MCH 29.2 pg (25.7-33.7); MCHC 31.7 g/dl (32.0-35.9); MEAN CELL VOLUME 92.1 fl (80-96); MEAN PLT VOLUME 8.2 fl (7.5-11.1); MONO % 12.3 % (3.8-10.2); NEUT % 56.4 % (42.8-82.8); PLATELET COUNT 322 10^3/uL (134-434); RBC 3.16 M/mm3 (4.00-5.60); WHITE BLOOD COUNT 4.4 K/mm3 (4.0-10.0)
[2024-04-23] MEDS: LACTATED RINGERS SOLUTION 1000 ML INFUS.BAG IV ONE ×2 (17:50→22:12)
[2024-04-23] MEDS: ACETAMINOPHEN 1000 MG/100 ML BAG IVPB ONE ×2 (17:50→22:32)
[2024-04-23 17:54] LABS: CHLORIDE 112 mmol/L (98-107); POTASSIUM 4.3 mmol/L (3.5-5.1); SODIUM 142 mmol/L (136-145)
[2024-04-23 17:55] LABS: ANION GAP 4 mmol/L (4-13); CO2 26 mmol/L (21-32)
[2024-04-23 17:56] LABS: MAGNESIUM 1.4 mg/dL (1.8-2.4)
[2024-04-23 17:57] LABS: BLOOD UREA NITROGEN 17.8 mg/dL (7-18); GLUCOSE,RANDOM 74 mg/dL (74-106)
[2024-04-23 17:59] LABS: CREATININE 0.6 mg/dL (0.55-1.3); SGOT/AST 34 U/L (15-37); SGPT/ALT 22 U/L (13-61)
[2024-04-23 18:00] LABS: PHOSPHOROUS 3.2 mg/dL (2.5-4.9)
[2024-04-23 18:01] LABS: TOT PROT 5.1 g/dl (6.4-8.2)
[2024-04-23 18:02] LABS: BILIRUBIN,TOTAL 0.3 mg/dL (0.2-1)
[2024-04-23 18:03] LABS: ALK PHOS 55 U/L (45-117)
[2024-04-23 18:09] LABS: CALCIUM 6.6 mg/dL (8.5-10.1)
[2024-04-23 18:12] LABS: PH,URINE 6.5 (5.0-8.0); URINE APPEARANCE CLEAR; URINE BILIRUBIN NEGATIVE (NEGATIVE); URINE COLOR YELLOW; URINE GLUCOSE (UA) NEGATIVE (NEGATIVE); URINE KETONE NEGATIVE (NEGATIVE); URINE LEUK ESTERASE NEGATIVE (NEGATIVE); URINE NITRITE NEGATIVE (NEGATIVE); URINE PROTEIN NEGATIVE (NEGATIVE); URINE UROBILINOGEN 0.2 mg/dL (0.2-1.0)
[2024-04-23] MEDS ORDERED: CEFTRIAXONE 1 G/50 ML PREMIX 50 ML IVPB ONE (18:13)
[2024-04-23 18:23] LABS: COCAINE, UR NEGATIVE (NEGATIVE); URINE BARBITURATES NEGATIVE (NEGATIVE)
[2024-04-23 18:24] LABS: METHADONE, UR NEGATIVE (NEGATIVE); OPIATES, URI NEGATIVE (NEGATIVE); PHENCYCLIDINE,URINE NEGATIVE (NEGATIVE)
[2024-04-23] MEDS: CEFTRIAXONE 1 GM in DEXTROSE 5%-WATER - 100 ML IVPB ONE (18:24)
[2024-04-23] MEDS ORDERED: AZITHROMYCIN IVPB 500 MG/250 ML BAG IVPB ONE (18:48)
[2024-04-23 18:54] LABS: URINE AMPHETAMINES NEGATIVE (NEGATIVE); URINE BENZODIAZEPINES POSITIVE (NEGATIVE)
[2024-04-23] MEDS: AZITHROMYCIN IVPB 500 MG in DEXTROSE 5%-WATER - 250 ML IVPB ONE (19:21)
[2024-04-23] MEDS ORDERED: MAGNESIUM SULFATE IN WATER 2 GM/50 ML IVPB IVPB ONE (21:42)
[2024-04-23] MEDS: MAGNESIUM SULFATE IN WATER 2 GM/50 ML IVPB IVPB ONE (21:45)
[2024-04-23] MEDS ORDERED: MAG HYDROX/AL HYDROX/SIMETH 30 ML UNIT-DOSE CUP ONE (22:24)
[2024-04-23] MEDS ORDERED: FAMOTIDINE 20 MG/50 ML IVPB 20 MG/50 ML MG IVPB ONE (22:24)
[2024-04-23] MEDS: FAMOTIDINE 20 MG/50 ML IVPB 20 MG/50 ML MG IVPB ONE (22:32)
[2024-04-23] MEDS: MAG HYDROX/AL HYDROX/SIMETH 30 ML UNIT-DOSE CUP PO ONE (22:32)
[2024-04-24] MEDS ORDERED: THIAMINE HCL 200 MG/2 ML VIAL ONE (01:24)
[2024-04-24] MEDS: THIAMINE HCL 200 MG/2 ML VIAL IVPB ONE (01:26)
[2024-04-24] MEDS ORDERED: diazePAM CARPU-JECT 10 MG/2 ML DISP.SYRIN ONE (01:47)
[2024-04-24] MEDS: diazePAM CARPU-JECT 10 MG/2 ML DISP.SYRIN IVPUSH ONE ×2 (02:07→06:06)
[2024-04-24] MEDS: chlordiazePOXIDE HCL 25 MG CAPSULE PO SCH (05:49)
[2024-04-24] MEDS: LACTATED RINGERS SOLUTION 1,000 ML/1,000 ML INFUS.BAG IV SCH (06:02)
[2024-04-24] MEDS: THIAMINE HCL 200 MG/2 ML VIAL IVPB SCH ×2 (06:24→08:39)
[2024-04-24] MEDS: PANTOPRAZOLE SODIUM 40 MG VIAL IVPUSH SCH (08:39)
[2024-04-24 09:11] LABS: EOS % 4.3 % (0-4.5); HEMOGLOBIN 8.8 GM/dL (11.7-16.9); LYMPH % 24.9 % (8-40); MCH 30.1 pg (25.7-33.7); MCHC 32.6 g/dl (32.0-35.9); MEAN CELL VOLUME 92.2 fl (80-96); MEAN PLT VOLUME 9.1 fl (7.5-11.1); MONO % 11.3 % (3.8-10.2); NEUT % 58.5 % (42.8-82.8); PLATELET COUNT 287 10^3/uL (134-434); RBC 2.93 M/mm3 (4.00-5.60); RDW 14.5 % (11.9-15.9); WHITE BLOOD COUNT 3.7 K/mm3 (4.0-10.0)
[2024-04-24 09:21] LABS: POTASSIUM 4.6 mmol/L (3.5-5.1)
[2024-04-24 09:26] LABS: CALCIUM 7.5 mg/dL (8.5-10.1)
[2024-04-24 09:27] LABS: ALBUMIN 2.2 g/dl (3.4-5.0); BLOOD UREA NITROGEN 18.8 mg/dL (7-18)
[2024-04-24 09:30] LABS: CREATININE 0.9 mg/dL (0.55-1.3)
[2024-04-24 09:31] LABS: BILIRUBIN,TOTAL 0.4 mg/dL (0.2-1)
[2024-04-24 09:32] LABS: TOT PROT 5.2 g/dl (6.4-8.2)
[2024-04-24] MEDS: BUPRENORPHINE/NALOXONE 8 MG/2 MG FILM PACKET SL SCH (09:32)
[2024-04-24] MEDS: POLYETHYLENE GLYCOL (HEALTHYLAX) 3350 17 GM PACKET PO SCH (09:32)
[2024-04-24] MEDS ORDERED: ENOXAPARIN NA (PORCINE) 40 MG/0.4 ML DISP.SYRIN SQ SCH (10:00)
[2024-04-24 10:41] LABS: MAGNESIUM 2.2 mg/dL (1.8-2.4)
[2024-04-24 12:16] LABS: HIV INTERPRETATION NEGATIVE (NEGATIVE)
[2024-04-24] MEDS: ACETAMINOPHEN 1000 MG/100 ML BAG IVPB PRN (15:38)
[2024-04-24] MEDS: CEFTRIAXONE 1 G/50 ML PREMIX 50 ML IVPB SCH (16:31)
[2024-04-24] MEDS: AZITHROMYCIN IVPB 500 MG/250 ML BAG IVPB SCH (16:37)
[2024-04-25] MEDS: ACETAMINOPHEN 1000 MG/100 ML BAG IVPB ONE (06:36)
[2024-04-25 09:34] LABS: HEMATOCRIT 26.9 % (35.4-49); HEMOGLOBIN 8.9 GM/dL (11.7-16.9); MCH 30.1 pg (25.7-33.7); MCHC 33.2 g/dl (32.0-35.9); MEAN CELL VOLUME 90.7 fl (80-96); MEAN PLT VOLUME 9.5 fl (7.5-11.1); PLATELET COUNT 249 10^3/uL (134-434); RBC 2.97 M/mm3 (4.00-5.60); RDW 14.8 % (11.9-15.9); WHITE BLOOD COUNT 3.6 K/mm3 (4.0-10.0)
[2024-04-25 09:58] LABS: POTASSIUM 4.8 mmol/L (3.5-5.1)
[2024-04-25 10:06] LABS: ALBUMIN 2.1 g/dl (3.4-5.0); BLOOD UREA NITROGEN 15.5 mg/dL (7-18); CALCIUM 7.6 mg/dL (8.5-10.1); MAGNESIUM 2.1 mg/dL (1.8-2.4)
[2024-04-25 10:09] LABS: CREATININE 0.9 mg/dL (0.55-1.3)
[2024-04-25 10:10] LABS: PHOSPHOROUS 3.9 mg/dL (2.5-4.9)
[2024-04-25 10:11] LABS: BILIRUBIN,TOTAL 0.4 mg/dL (0.2-1); TOT PROT 5.2 g/dl (6.4-8.2)
[2024-04-25 10:14] LABS: N-TERMINAL BNP 2000.1 pg/ml (5-125)
[2024-04-25] MEDS: levETIRAcetam 500 MG TABLET (FP) PO SCH (10:18)
[2024-04-26] MEDS: ACETAMINOPHEN 325 MG TABLET (FP) PO PRN (01:57)
[2024-04-26] MEDS: LORazepam 2 MG/ML SDV VIAL IVPUSH PRN (01:58)
[2024-04-26 08:53] LABS: HEMOGLOBIN 9.2 GM/dL (11.7-16.9); MCH 29.5 pg (25.7-33.7); MCHC 32.7 g/dl (32.0-35.9); MEAN CELL VOLUME 90.2 fl (80-96); MEAN PLT VOLUME 9.1 fl (7.5-11.1); PLATELET COUNT 284 10^3/uL (134-434); RDW 14.7 % (11.9-15.9); WHITE BLOOD COUNT 3.8 K/mm3 (4.0-10.0)
[2024-04-26 09:03] LABS: POTASSIUM 4.5 mmol/L (3.5-5.1)
[2024-04-26 09:16] LABS: CALCIUM 7.8 mg/dL (8.5-10.1)
[2024-04-26 09:17] LABS: ALBUMIN 2.3 g/dl (3.4-5.0); BLOOD UREA NITROGEN 11.3 mg/dL (7-18); MAGNESIUM 2.1 mg/dL (1.8-2.4)
[2024-04-26 09:21] LABS: PHOSPHOROUS 4.6 mg/dL (2.5-4.9)
[2024-04-26 09:23] LABS: TOT PROT 5.6 g/dl (6.4-8.2)
[2024-04-26 09:24] LABS: BILIRUBIN,TOTAL 0.5 mg/dL (0.2-1)
[2024-04-26] MEDS: THIAMINE HCL 200 MG/2 ML VIAL IVPB SCH (10:26)
[2024-04-26] MEDS: IBUPROFEN 400 MG TABLET (FP) PO ONE (10:53)
[2024-04-26] MEDS: PIPERACILLIN/TAZOB 3.375 GM 3.375 GM in DEXTROSE 5%-WATER - 50 ML IVPB SCH (17:20)
[2024-04-27 09:21] LABS: HEMATOCRIT 29.8 % (35.4-49); HEMOGLOBIN 9.8 GM/dL (11.7-16.9); MCH 29.8 pg (25.7-33.7); MCHC 32.8 g/dl (32.0-35.9); MEAN CELL VOLUME 90.8 fl (80-96); MEAN PLT VOLUME 9.2 fl (7.5-11.1); PLATELET COUNT 300 10^3/uL (134-434); RBC 3.28 M/mm3 (4.00-5.60); RDW 14.5 % (11.9-15.9); WHITE BLOOD COUNT 4.9 K/mm3 (4.0-10.0)
[2024-04-27 09:55] LABS: POTASSIUM 4.5 mmol/L (3.5-5.1)
[2024-04-27 10:30] LABS: ALBUMIN 2.5 g/dl (3.4-5.0); BLOOD UREA NITROGEN 11.8 mg/dL (7-18); MAGNESIUM 2.1 mg/dL (1.8-2.4)
[2024-04-27 10:32] LABS: CREATININE 0.9 mg/dL (0.55-1.3)
[2024-04-27 10:33] LABS: BILIRUBIN,TOTAL 0.4 mg/dL (0.2-1); PHOSPHOROUS 4.3 mg/dL (2.5-4.9)
[2024-04-27 10:35] LABS: TOT PROT 6.2 g/dl (6.4-8.2)
[2024-04-28 09:15] LABS: HEMATOCRIT 31.6 % (35.4-49); HEMOGLOBIN 10.3 GM/dL (11.7-16.9); MCH 29.6 pg (25.7-33.7); MCHC 32.8 g/dl (32.0-35.9); MEAN CELL VOLUME 90.2 fl (80-96); MEAN PLT VOLUME 9.1 fl (7.5-11.1); PLATELET COUNT 339 10^3/uL (134-434); RDW 14.8 % (11.9-15.9); WHITE BLOOD COUNT 3.9 K/mm3 (4.0-10.0)
[2024-04-28 09:20] LABS: POTASSIUM 4.6 mmol/L (3.5-5.1)
[2024-04-28 09:24] LABS: ALBUMIN 2.7 g/dl (3.4-5.0); BLOOD UREA NITROGEN 9.9 mg/dL (7-18); CALCIUM 8.3 mg/dL (8.5-10.1)
[2024-04-28 09:25] LABS: MAGNESIUM 2.2 mg/dL (1.8-2.4)
[2024-04-28 09:27] LABS: PHOSPHOROUS 4.2 mg/dL (2.5-4.9)
[2024-04-28 09:28] LABS: TOT PROT 6.6 g/dl (6.4-8.2)
[2024-04-28 09:34] LABS: BILIRUBIN,TOTAL 0.3 mg/dL (0.2-1)
[2024-04-29] MEDS: chlordiazePOXIDE HCL 25 MG CAPSULE PO ONE ×2 (20:31→21:41)
[2024-04-30] MEDS: chlordiazePOXIDE HCL 25 MG CAPSULE PO ONE (03:14)
[2024-04-30 09:12] VITALS: RESP 18
[2024-04-30 09:13] VITALS: BP 121/80; PULSE 85; TEMP 99.1
== END 2024-04-30 09:03 | disposition other institution (70) | DRG 773 ==
LOC: JER 15:13 → JERBED 04-24 00:22 → OBSVTOIN 04-24 01:01 → J7W 04-24 02:48
PROVIDERS: ADMIT Internal Medicine
PROC: HZ2ZZZZ Detoxification Services for Substance Abuse Treatment (ICD-10-PCS; principal; 2024-04-24)
DX: F10.239 Alcohol dependence with withdrawal, unspecified (principal); F11.20 Opioid dependence, uncomplicated; F10.231 Alcohol dependence with withdrawal delirium; G93.40 Encephalopathy, unspecified; J69.0 Pneumonitis due to inhalation of food and vomit; E83.42 Hypomagnesemia; D64.9 Anemia, unspecified; F12.90 Cannabis use, unspecified, uncomplicated; F14.10 Cocaine abuse, uncomplicated; I10 Essential (primary) hypertension; K56.41 Fecal impaction; R09.02 Hypoxemia; R44.3 Hallucinations, unspecified; Z59.00 Homelessness unspecified
CPT/HCPCS: 0241U-QW; 36415; 70450-TC; 71045-TC-FY; 74177-TC; 80053; 80307; 81003; 82140; 82550; 82607; 82728; 82803; 82962; 83540; 83690; 83735; 83880; 84100; 84466; 84484; 84550; 85025; 85027; 86850; 86900; 86901; 87086; 87389; 93005; 93010; 97116-GP; 97162-GP; 99291; G0378; J0131; Q9967

== ENCOUNTER 2024-04-30 09:24 | Inpatient (IN) | payer OTHER ==
[2024-04-30 09:56] VITALS: BMI 18.0
[2024-04-30] MEDS ORDERED: IBUPROFEN 600 MG TABLET (FP) PO PRN (10:20)
[2024-04-30] MEDS ORDERED: MAG HYDROX/AL HYDROX/SIMETH 30 ML UNIT-DOSE CUP PO PRN (10:20)
[2024-04-30] MEDS ORDERED: ACETAMINOPHEN 325 MG TABLET (FP) PO PRN (10:20)
[2024-04-30] MEDS ORDERED: IBUPROFEN 400 MG TABLET (FP) PO PRN (10:20)
[2024-04-30] MEDS ORDERED: MAGNESIUM HYDROX 2400MG/30ML ORAL SUSPENSION 30 ML CUP PO PRN (10:20)
[2024-04-30] MEDS ORDERED: BENZONATATE 200 MG CAPSULE PO PRN (10:20)
[2024-04-30] MEDS ORDERED: BENZOCAINE/MENTHOL (CHLORASEPTIC ) LOZENGE MM PRN (10:20)
[2024-04-30] MEDS ORDERED: hydrOXYzine PAMOATE 25 MG CAPSULE (FP) PO PRN (10:20)
[2024-04-30] MEDS ORDERED: LOPERAMIDE HCL 2 MG CAPSULE PO PRN (10:20)
[2024-04-30] MEDS ORDERED: POLYETHYLENE GLYCOL (HEALTHYLAX) 3350 17 GM PACKET PO PRN (10:20)
[2024-04-30] MEDS ORDERED: NALOXONE (NARCAN) HCL 4 MG/0.1 ML SPRAY NS PRN (10:20)
[2024-04-30] MEDS: guaiFENesin 600 MG TABLET.ER (FP) PO PRN (20:57)
[2024-04-30] MEDS: levETIRAcetam 500 MG TABLET (FP) PO SCH (21:23)
[2024-04-30] MEDS: AMOX TR/POT CLAV 875MG/125MG TABLETS (FP) PO SCH (21:23)
[2024-04-30] MEDS: MELATONIN 5 MG TABLETS PO SCH (21:24)
[2024-04-30] MEDS: THIAMINE 100 MG TABLET PO SCH (21:24)
[2024-05-01 06:17] VITALS: BP 99/60; PULSE 87; RESP 18; TEMP 97.8
[2024-05-01] MEDS: FAMOTIDINE 20 MG TABLET PO SCH (09:56)
[2024-05-01] MEDS: BUPRENORPHINE/NALOXONE 8 MG/2 MG FILM PACKET SL SCH (09:56)
[2024-05-01] MEDS: BACITRACIN 0.9 GM PACKET TP SCH (09:56)
[2024-05-01] MEDS: PRENATAL VITAMINS W/ FOLIC ACID TABLET (FP) PO SCH (09:56)
[2024-05-01 11:06] LABS: HEMATOCRIT 30.6 % (35.4-49); HEMOGLOBIN 9.8 GM/dL (11.7-16.9); MCHC 32.2 g/dl (32.0-35.9); MEAN CELL VOLUME 90.2 fl (80-96); PLATELET COUNT 395 10^3/uL (134-434); RBC 3.39 M/mm3 (4.00-5.60); RDW 15.2 % (11.9-15.9)
[2024-05-01 11:27] LABS: ALBUMIN 2.5 g/dl (3.4-5.0)
[2024-05-01 11:28] LABS: BLOOD UREA NITROGEN 19.8 mg/dL (7-18)
[2024-05-01 11:32] LABS: BILIRUBIN,TOTAL 0.4 mg/dL (0.2-1); TOT PROT 6.3 g/dl (6.4-8.2)
[2024-05-01 14:40] LABS: SYPHILIS W/ RPR CONF NON-REACTIVE (NONREACTIVE)
== END 2024-05-01 11:27 | disposition left against medical advice (07) | DRG 770 ==
LOC: YASAS 09:24 → Y3NR 11:52 → Y3E 05-01 09:28
PROVIDERS: ADMIT Psychiatry & Neurology Pain Medicine; ATTEND Psychiatry & Neurology Pain Medicine
PROC: HZ42ZZZ Group Counseling for Substance Abuse Treatment, Cognitive-Behavioral (ICD-10-PCS; principal; 2024-04-30)
DX: F10.20 Alcohol dependence, uncomplicated (principal); F11.20 Opioid dependence, uncomplicated; F14.20 Cocaine dependence, uncomplicated; F12.20 Cannabis dependence, uncomplicated; F10.282 Alcohol dependence with alcohol-induced sleep disorder; F10.24 Alcohol dependence with alcohol-induced mood disorder; I10 Essential (primary) hypertension; K21.9 Gastro-esophageal reflux disease without esophagitis; R76.11 Nonspecific reaction to tuberculin skin test without active tuberculosis; R26.89 Other abnormalities of gait and mobility; Z99.89 Dependence on other enabling machines and devices
CPT/HCPCS: 36415; 80053; 80307; 82140; 83880; 85027; 86780; 86803; 87811

== ENCOUNTER 2024-05-12 12:59 | Inpatient (IN) | payer OTHER ==
[2024-05-12 13:36] VITALS: BMI 18.6
[2024-05-12] MEDS ORDERED: BISMUTH SUBSALICYLATE 262 MG/15 ML BTL PO PRN (14:22)
[2024-05-12] MEDS ORDERED: DICYCLOMINE HCL 10 MG CAPSULE PO PRN (14:22)
[2024-05-12] MEDS ORDERED: NICOTINE POLACRILEX 2 MG GUM BUC PRN (14:22)
[2024-05-12] MEDS ORDERED: NICOTINE POLACRILEX 2 MG LOZENGE BC PRN (14:22)
[2024-05-12] MEDS ORDERED: ACETAMINOPHEN 325 MG TABLET (FP) PO PRN (14:22)
[2024-05-12] MEDS ORDERED: BENZONATATE 200 MG CAPSULE PO PRN (14:22)
[2024-05-12] MEDS ORDERED: POLYETHYLENE GLYCOL (HEALTHYLAX) 3350 17 GM PACKET PO PRN (14:22)
[2024-05-12] MEDS ORDERED: NALOXONE (NARCAN) HCL 4 MG/0.1 ML SPRAY NS PRN (14:22)
[2024-05-12] MEDS ORDERED: METHOCARBAMOL 500 MG TABLET PO PRN (14:22)
[2024-05-12] MEDS ORDERED: guaiFENesin 600 MG TABLET.ER (FP) PO PRN (14:22)
[2024-05-12] MEDS ORDERED: P-EPHED 60MG/TRIPROLIDI 2.5MG TABLET PO PRN (14:22)
[2024-05-12] MEDS ORDERED: IBUPROFEN 400 MG TABLET (FP) PO PRN (14:22)
[2024-05-12] MEDS ORDERED: BENZOCAINE/MENTHOL (CHLORASEPTIC ) LOZENGE MM PRN (14:22)
[2024-05-12] MEDS ORDERED: LOPERAMIDE HCL 2 MG CAPSULE PO PRN (14:22)
[2024-05-12] MEDS ORDERED: MAG HYDROX/AL HYDROX/SIMETH 30 ML UNIT-DOSE CUP PO PRN (14:22)
[2024-05-12] MEDS ORDERED: MAGNESIUM HYDROX 2400MG/30ML ORAL SUSPENSION 30 ML CUP PO PRN (14:22)
[2024-05-12] MEDS ORDERED: chlordiazePOXIDE HCL 25 MG CAPSULE PO PRN (14:27)
[2024-05-12] MEDS ORDERED: chlordiazePOXIDE HCL 25 MG CAPSULE ONE (15:03)
[2024-05-12] MEDS: chlordiazePOXIDE HCL 25 MG CAPSULE PO ONE (15:06)
[2024-05-12] MEDS: chlordiazePOXIDE HCL 25 MG CAPSULE PO SCH (17:29)
[2024-05-12] MEDS: THIAMINE 100 MG TABLET PO SCH (22:48)
[2024-05-12] MEDS: MELATONIN 5 MG TABLETS PO SCH (22:48)
[2024-05-12] MEDS: levETIRAcetam 500 MG TABLET (FP) PO SCH (22:48)
[2024-05-13] MEDS: IBUPROFEN 600 MG TABLET (FP) PO PRN (04:17)
[2024-05-13 10:56] LABS: HEMATOCRIT 35.4 % (40.1-51.0); HEMOGLOBIN 10.1 g/dL (13.7-17.5); MCHC 28.5 g/dl (32.3-36.5); MEAN CELL VOLUME 96.2 fl (79.0-92.2); MEAN PLT VOLUME 11.8 fl (9.4-12.4); PLATELET COUNT # 333 x10^3/uL (163-337); RDW 15.4 % (12.2-16.4)
[2024-05-13] MEDS: NALTREXONE HCL 50 MG TABLET PO SCH (10:56)
[2024-05-13] MEDS: PRENATAL VITAMINS W/ FOLIC ACID TABLET (FP) PO SCH (10:56)
[2024-05-13 11:00] LABS: POTASSIUM 5.1 mmol/L (3.5-5.1)
[2024-05-13 11:02] LABS: CALCIUM 8.6 mg/dL (8.5-10.1)
[2024-05-13 11:03] LABS: BLOOD UREA NITROGEN 23.2 mg/dL (7-18)
[2024-05-13 11:06] LABS: CREATININE 1.1 mg/dL (0.55-1.3)
[2024-05-13 11:08] LABS: BILIRUBIN,TOTAL 0.2 mg/dL (0.2-1); TOT PROT 7.1 g/dl (6.4-8.2)
[2024-05-13] MEDS: ONDANSETRON *ODT* 4 MG TABLET SL PRN (12:24)
[2024-05-13 13:40] LABS: HIV INTERPRETATION NEGATIVE (NEGATIVE)
[2024-05-13] MEDS: TRIMETHOBENZAMIDE HCL 200MG/2ML INJ IM PRN (14:10)
[2024-05-13] MEDS: TRIMETHOBENZAMIDE HCL 200MG/2ML INJ IM ONE (14:11)
[2024-05-13] MEDS ORDERED: DEXTROSE 5%-WATER - 1,000 ML IV SCH (15:15)
[2024-05-13] MEDS ORDERED: DEXTROSE 5%-0.45% SALINE 500 ML IV SCH (15:15)
[2024-05-13] MEDS ORDERED: DEXTROSE 5%-WATER - 500 ML IV SCH (15:30)
[2024-05-13 16:11] VITALS: BP 178/79; PULSE 43; RESP 16; TEMP 97.6
[2024-05-13] MEDS: MELATONIN 5 MG TABLETS PO SCH (22:41)
[2024-05-14] MEDS ORDERED: chlordiazePOXIDE HCL 25 MG CAPSULE PO SCH (05:00)
[2024-05-15] MEDS ORDERED: chlordiazePOXIDE HCL 10 MG CAPSULE PO PRN
[2024-05-15] MEDS ORDERED: chlordiazePOXIDE HCL 10 MG CAPSULE PO SCH (05:00)
[2024-05-16] MEDS ORDERED: chlordiazePOXIDE HCL 10 MG CAPSULE PO SCH (05:00)
[2024-05-17] MEDS ORDERED: chlordiazePOXIDE HCL 10 MG CAPSULE PO ONE (05:00)
== END 2024-05-14 07:41 | disposition short-term general hospital (02) | DRG 775 ==
LOC: YASAS 12:59 → Y6N 15:07
PROVIDERS: ADMIT Allergy & Immunology; ATTEND Allergy & Immunology
PROC: HZ2ZZZZ Detoxification Services for Substance Abuse Treatment (ICD-10-PCS; principal; 2024-05-12)
DX: F10.230 Alcohol dependence with withdrawal, uncomplicated (principal); F12.20 Cannabis dependence, uncomplicated; F17.210 Nicotine dependence, cigarettes, uncomplicated; F19.282 Other psychoactive substance dependence with psychoactive substance-induced sleep disorder; F32.A Depression, unspecified; F41.9 Anxiety disorder, unspecified; I10 Essential (primary) hypertension; K21.9 Gastro-esophageal reflux disease without esophagitis; Z86.11 Personal history of tuberculosis; Z87.09 Personal history of other diseases of the respiratory system
CPT/HCPCS: 36415; 80053; 80305; 80307; 85027; 86780; 86803; 87389; 93005; 93010; Q0162

== ENCOUNTER 2024-05-15 13:40 | Inpatient (IN) | payer OTHER ==
[2024-05-15 14:27] VITALS: RESP 16; BMI 17.7
[2024-05-15] MEDS ORDERED: guaiFENesin 600 MG TABLET.ER (FP) PO PRN (16:19)
[2024-05-15] MEDS ORDERED: POLYETHYLENE GLYCOL (HEALTHYLAX) 3350 17 GM PACKET PO PRN (16:19)
[2024-05-15] MEDS ORDERED: BENZONATATE 200 MG CAPSULE PO PRN (16:19)
[2024-05-15] MEDS ORDERED: LOPERAMIDE HCL 2 MG CAPSULE PO PRN (16:19)
[2024-05-15] MEDS ORDERED: MAG HYDROX/AL HYDROX/SIMETH 30 ML UNIT-DOSE CUP PO PRN (16:19)
[2024-05-15] MEDS ORDERED: IBUPROFEN 400 MG TABLET (FP) PO PRN (16:19)
[2024-05-15] MEDS ORDERED: MAGNESIUM HYDROX 2400MG/30ML ORAL SUSPENSION 30 ML CUP PO PRN (16:19)
[2024-05-15] MEDS ORDERED: BENZOCAINE/MENTHOL (CHLORASEPTIC ) LOZENGE MM PRN (16:19)
[2024-05-15] MEDS ORDERED: ACETAMINOPHEN 325 MG TABLET (FP) PO PRN (16:19)
[2024-05-15] MEDS ORDERED: NALOXONE (NARCAN) HCL 4 MG/0.1 ML SPRAY NS PRN (16:19)
[2024-05-15] MEDS: IBUPROFEN 600 MG TABLET (FP) PO PRN (20:30)
[2024-05-15] MEDS: hydrOXYzine PAMOATE 25 MG CAPSULE (FP) PO PRN (20:30)
[2024-05-15] MEDS: THIAMINE 100 MG TABLET PO SCH (21:07)
[2024-05-15] MEDS: MELATONIN 5 MG TABLETS PO SCH (21:07)
[2024-05-16 06:29] VITALS: BP 105/62; PULSE 61; TEMP 97.6
[2024-05-16 09:31] LABS: CHLORIDE 112 mmol/L (98-107); POTASSIUM 3.9 mmol/L (3.5-5.1); SODIUM 143 mmol/L (136-145)
[2024-05-16 09:32] LABS: HEMATOCRIT 34.5 % (40.1-51.0); MEAN CELL VOLUME 94.8 fl (79.0-92.2); MEAN PLT VOLUME 10.7 fl (9.4-12.4); PLATELET COUNT 354 x10^3/uL (163-337); RDW 15.5 % (12.2-16.4)
[2024-05-16] MEDS ORDERED: PRENATAL VITAMINS W/ FOLIC ACID TABLET (FP) PO SCH (10:00)
[2024-05-16 10:11] LABS: ALBUMIN 2.4 g/dl (3.4-5.0); CALCIUM 8.1 mg/dL (8.5-10.1)
[2024-05-16 10:12] LABS: ANION GAP 8 mmol/L (4-13); BLOOD UREA NITROGEN 26.6 mg/dL (7-18); CO2 24 mmol/L (21-32); GLUCOSE,RANDOM 98 mg/dL (74-106)
[2024-05-16 10:15] LABS: CREATININE 0.8 mg/dL (0.55-1.3); SGOT/AST 28 U/L (15-37)
[2024-05-16 10:16] LABS: BILIRUBIN,TOTAL 0.2 mg/dL (0.2-1); TOT PROT 5.7 g/dl (6.4-8.2)
[2024-05-16 10:17] LABS: ALK PHOS 74 U/L (45-117)
[2024-05-16 10:31] LABS: SGPT/ALT 34 U/L (13-61)
[2024-05-16 13:58] LABS: HCV DIAGNOSTIC IN-HOUSE W/RFLX NON-REACTIVE (NONREACTIVE)
[2024-05-16 19:53] LABS: SYPHILIS W/ RPR CONF NON-REACTIVE (NONREACTIVE)
== END 2024-05-16 10:20 | disposition left against medical advice (07) | DRG 770 ==
LOC: YASAS 13:40 → Y3NR 17:12
PROVIDERS: ADMIT Psychiatry & Neurology Pain Medicine; ATTEND Psychiatry & Neurology Pain Medicine
PROC: HZ42ZZZ Group Counseling for Substance Abuse Treatment, Cognitive-Behavioral (ICD-10-PCS; principal; 2024-05-15)
DX: F11.20 Opioid dependence, uncomplicated (principal); F10.20 Alcohol dependence, uncomplicated; F14.20 Cocaine dependence, uncomplicated; F12.20 Cannabis dependence, uncomplicated; F17.210 Nicotine dependence, cigarettes, uncomplicated
CPT/HCPCS: 36415; 71045-TC-FY; 80053; 80305; 80307; 81003; 82140; 82803; 83735; 84100; 84443; 85025; 85027; 86780; 86803; 93005; 93010; 93306-TC; G0378